=== PATIENT | male | born 1995 | race Caucasian/White ===

== ENCOUNTER 2018-10-12 11:07 | Emergency (ER) | payer SELFPAY ==
[2018-10-12 11:17] VITALS: BP 125/60; PULSE 61; TEMP 97.7; BMI 20.2
--- NOTE | 2018-10-12 12:11 | PDOC ---
History of Present Illness - General Chief Complaint: Eye Problem Stated Complaint: RT EYE PROBLEM Time Seen by Provider: 10/12/18 11:30 History Source: Patient Exam Limitations: Language Barrier (tube washer ID#[id number]) Past History - Past Medical History Allergies/Adverse Reactions: Allergies Allergy/AdvReac Type Severity Reaction Status Date / Time No Known Allergies Allergy Verified 10/12/18 11:13 Home Medications: Ambulatory Orders Erythromycin 0.5% Eye Ointment [Erythromycin 0.5% Eye Ointment -] 1 applic OD BID #1 tube 10/12/18 COPD: No - Suicide/Smoking/Psychosocial Hx Smoking History: Former smoker Have you smoked in the past 12 months: No Information on smoking cessation initiated: No Hx Alcohol Use: No Drug/Substance Use Hx: No *Physical Exam - Vital Signs Last Vital Signs Temp Pulse Resp BP Pulse Ox 97.7 F 61 16 125/60 100 10/12/18 11:13 10/12/18 11:13 10/12/18 11:13 10/12/18 11:13 10/12/18 11:13 - Physical Exam General Appearance: No: Apparent Distress HEENT: positive: EOMI, PIYUSH, Other (R eye injected, 20/25 vision R eye, 20/25 vision L eye, +FB noted along cornea, no tearing, no dye uptake) Respiratory/Chest: positive: Lungs Clear, Normal Breath Sounds. negative: Respiratory Distress Cardiovascular: positive: Regular Rhythm, Regular Rate, S1, S2. negative: Murmur Neurologic: positive: Alert, Normal Mood/Affect Medical Decision Making - Medical Decision Making 23 y/o M with no sig pmh presents with R eye redness s/p cutting a metal object at his work 3 days ago. States he was not wearing eye protection. Endorses +R eye pain, photophobia, FB sensation and tearing. Denies wearing glasses or contacts. Denies blurred vision, fever, n/v. R eye FB removed with Q-tip No evidence of corneal abrasion noted Possible small rust ring remaining (no slip lamp available to examine) Patient feeling better after removal Will refer to ophtho 10/12/18 12:11 *DC/Admit/Observation/Transfer Diagnosis at time of Disposition: Foreign body, eye Qualifiers: Encounter type: initial encounter Laterality: right Qualified Code(s): T15.91XA - Foreign body on external eye, part unspecified, right eye, initial encounter - Discharge Dispostion Disposition: HOME Condition at time of disposition: Stable Decision to Admit order: No - Prescriptions Prescriptions: Erythromycin 0.5% Eye Ointment [Erythromycin 0.5% Eye Ointment -] 1 applic OD BID #1 tube - Referrals Referrals: Shalom Ochoa MD [Staff Physician] - Call tomorrow - Patient Instructions Printed Discharge Instructions: DI for Foreign Body in the Eye Additional Instructions: Thank you for choosing [facility]. It was a pleasure taking care of you. You were seen here for foreign body removed from eye Apply the ointment as directed Follow-up with eye doctor tomorrow Return to the Emergency Department if your symptoms worsen or persist, you have blurred/loss of vision, headache, vomiting or other concerning symptoms. Hemant por elegir el [facility]. Fue un placer cuidar de ti. Te vieron aqu por un cuerpo extrao extrado del mario Aplique la pomada segn las indicaciones. Seguimiento con el oftalmlogo maana Regrese al departamento de emergencias si sohail sntomas empeoran o persisten, tiene visin borrosa / prdida de visin, dolor de evan, vmitos u otros sntomas preocupantes. - Post Discharge Activity
== END 2018-10-12 12:30 | disposition home or self-care (01) ==
LOC: JERFT 11:07
PROC: 4A07X0Z Measurement of Visual Acuity, External Approach (ICD-10-PCS; principal; 2018-10-12)
PROC: 08C8XZZ Extirpation of Matter from Right Cornea, External Approach (ICD-10-PCS; 2018-10-12)
DX: T15.01XA Foreign body in cornea, right eye, initial encounter (principal); W26.8XXA Contact with other sharp object(s), not elsewhere classified, initial encounter; Y93.H3 Activity, building and construction; Y92.69 Other specified industrial and construction area as the place of occurrence of the external cause; Y99.0 Civilian activity done for income or pay
CPT/HCPCS: 99282-25